=== PATIENT | male | born 1990 | race American Indian/Alaskan Native ===

== ENCOUNTER 2019-08-31 10:40 | Emergency (ER) | payer MEDICARE ==
[2019-08-31 10:53] VITALS: BP 107/76
--- NOTE | 2019-08-31 12:53 | Emergency Department Report ---
Chief Complaint: Sore Throat Stated Complaint: SORE THROAT Time Seen by Provider: 08/31/19 12:48 - HPI History of Present Illness: 29 y o male presents to ED cc of sore throat x 4 weeks pt states he was treated with amoxicillin completed [facility]kins 5 days ago still having throat pain with swallowing denies trauma or allergies He denies f/c/n/v or trouble swallowing - ROS Review of Systems: As noted in HPI - Exam Vital Signs: Vital Signs 08/31/19 10:51 Temperature 97.7 F Pulse Rate 73 Respiratory 20 Rate Blood Pressure 107/76 O2 Sat by Pulse 100 Oximetry Physical Exam: MOUTH: no tonsilitis or erythema or swelling noted patent airways MSE screening note: Focused history and physical exam performed. Due to findings the following was ordered: ED Medical Decision Making - Medical Decision Making Discussed with pt to follow up with pcp JOCELYN- ADRIANA, no acute or respiratory distress ED Disposition for MSE Clinical Impression: Sore throat Disposition: Z-07 MED SCREENING EXAM-LEFT Is pt being admited?: No Does the pt Need Aspirin: No Condition: Stable Instructions: Pharyngitis (ED) Referrals: PRIMARY CAREMD [Primary Care Provider] - 3-5 Days JEFF LITTLE MD [Staff Physician[facility] - 3-5 Days [facility] - 3-5 Days [facility] [Provider Group] - 3-5 Days Forms: Work/School Release Form(ED) Time of Disposition: 12:53
== END 2019-08-31 12:55 | disposition left against medical advice (07) ==
LOC: ED 10:40
DX: J02.9 Acute pharyngitis, unspecified (principal)
CPT/HCPCS: 99281